=== PATIENT | male | born 1955 | race Caucasian/White ===

== ENCOUNTER → 2022-10-16 | Outpatient (CLI) | payer MEDICARE ==
[2022-10-16 12:27] LABS: APPEARANCE,URINE CLEAR (CLEAR); BASOPHILS # (AUTO) 0.07 K/uL (0.00-0.20); BASOPHILS % (AUTO) 1.4 % (0.0-5.0); BILIRUBIN,URINE NEGATIVE (NEGATIVE); COLOR,URINE LIGHT-YELLOW (YELLOW); EOSINOPHILS # (AUTO) 0.17 K/uL (0.00-0.70); EOSINOPHILS % (AUTO) 3.4 % (0.0-8.0); GLUCOSE, URINE (UA) NEGATIVE (NEGATIVE); HEMATOCRIT 44.1 % (42-54); IMMATURE GRANULOCYTE ABSOLUTE 0.01 K/uL (0-1); KETONES,URINE NEGATIVE (NEGATIVE); LEUKOCYTE ESTERASE ,URINE 25 Leu/uL (NEGATIVE); LYMPHOCYTES # (AUTO) 0.8 K/uL (1.0-4.8); LYMPHOCYTES % (AUTO) 15.8 % (21.0-51.0); MEAN CORPUSCULAR HEMOGLOBIN 28.4 pg (27.0-33.0); MEAN CORPUSCULAR HGB CONC 32.4 g/dL (32.0-36.0); MEAN CORPUSCULAR VOLUME 87.5 fL (79-99); MONOCYTES # (AUTO) 0.6 K/uL (0.1-1.0); MONOCYTES % (AUTO) 11.4 % (3.0-13.0); NEUTROPHILS # (AUTO) 3.4 K/uL (1.8-7.7); NEUTROPHILS % (AUTO) 67.8 % (40.0-77.0); NITRATE,URINE NEGATIVE (NEGATIVE); OCCULT BLOOD,URINE NEGATIVE (NEGATIVE); PH,URINE 5.5 (5.0-8.0); PLATELET COUNT (AUTO) 314 K/uL (130-400); PROTEIN,URINE NEGATIVE (NEGATIVE); RED BLOOD CELL COUNT(AUTO) 5.04 MIL/uL (4.50-6.20); RED CELL DISTRIBUTION WIDTH 13.4 % (11.0-15.5); UROBILINOGEN,URINE 0.2 mg/dL (0.2-1.0)
[2022-10-16 12:45] LABS: ADD UA MICROSCOPIC YES
[2022-10-16 12:51] LABS: MUCUS,URINE RARE LPF (None Seen); RBC,URINE 0-1 /HPF (0-1); SQUAMOUS EPITHELIAL CELL,UR RARE /HPF (0-2)
[2022-10-16 12:57] LABS: ALBUMIN 3.8 g/dL (3.5-5.0); BILIRUBIN,TOTAL 0.6 mg/dL (0.2-1.0); POTASSIUM 3.9 mmol/L (3.5-5.1); THYROID STIMULATING HORMONE 1.12 uIU/mL (0.36-3.74); TOTAL PROTEIN, SERUM 6.7 g/dL (6.0-8.3)
== END | disposition home or self-care (01) ==
LOC: LAB 08:16
PROVIDERS: ATTEND Internal Medicine Cardiovascular Disease
DX: E78.5 Hyperlipidemia, unspecified (principal)
CPT/HCPCS: 36415; 80053; 80061; 81001; 84443; 85025